=== PATIENT | female | born 1970 | race Caucasian/White ===

== ENCOUNTER 2020-06-30 09:41 | Emergency (ER) | payer OTHER ==
[~2020-06-30] VITALS: Ht 162.6 cm; Wt 108.9 kg
--- NOTE | 2020-06-30 09:55 | Emergency Department Note ---
History of Present Illnes History of Present Illness Chief Complaint: Skin Rash or Abscess History of Present Illness This is a 49 year old female states that she felt a bite near her L ear 5 days prior with worsening pain at the puncture site and L ear pain. Seen by PCP and was give OTIC drops with oral abx, pain and lesion worsened. Seen briefly at and was sent to ED for evaluation. Seen at bedside non-toxic appearing and denies f/c/n/v . Historian: Patient Arrival Mode: Car Onset (how long ago): day(s) (5) Location: Left ear and retro-auricular regoin Quality: aching Severity: moderate Onset quality: gradual Duration (how long): day(s) (5) Timing of current episode: constant Chronicity: new Context: Denies recent illness, Denies recent surgery, Denies recent immobilization, Denies recent travel, Denies trauma/injury, Denies new medications, Denies hx of DVT/PE, Denies non-compliance w/ medications, Denies other Relieving factors: none Exacerbating factors: none Associated symptoms: Reports denies other symptoms Treatments prior to arrival: none Previous service: medications given (bactrim ds , triam cream) Past Medical/Family History Physician Review I have reviewed the patient's past medical and family history. Any updates have been documented here. Past Medical History Recent Fever: No Clinical Suspicion of Infectio: Yes New/Unexplained Change in Ment: No Past Medical History: Diabetes Past Surgical History: None Social History Smoking Cessation: Never Smoker Alcohol Use: None Any Illegal Drug Use: No Review of Systems Review of Systems Constitutional: Denies fever EENTM: Reports ear pain; Denies ear discharge Cardiovascular: Reports no symptoms Respiratory: Reports no symptoms Gastrointestinal: Reports no symptoms Genitourinary: Reports no symptoms Musculoskeletal: Reports no symptoms Integumentary: Reports rash Neurological: Reports no symptoms Psychological: Reports no symptoms Endocrine: Reports no symptoms Hematological/Lymphatic: Reports no symptoms Physical Exam Related Data Allergies: Coded Allergies: ciprofloxacin (Verified Allergy, Unknown, 06/30/20) dulaglutide (Verified Allergy, Unknown, 06/30/20) Physical Exam CONSTITUTIONAL HENT EYES NECK PULMONARY CARDIOVASCULAR GASTROINTESTINAL GENITOURINARY SKIN Skin: Present warm, Present erythema, Present other (pustule noted L masotid region with central puncture . superior mild fluctuance noted superior to area. Enlarged EAC L) MUSCULOSKELETAL NEUROLOGICAL PSYCHOLOGICAL Results Imaging Imaging results reviewed: Yes Impressions [place] [id number] [place] [id number] Patient Name: ROHINI ADAMS MR #: [id number] : 1970 Age/Sex: 49/F Req #: [id number] Adm Physician: Ordered by: JANAK HERRERA DO Report #: [id number] Location: [facility] Room/Bed: Procedure: [id number] HOPD/CT BRAIN WO-HOPD Exam Date: 06/30/20 Exam Time: 1008 REPORT STATUS: Signed CT BRAIN WO-HOPD HISTORY: Left mastoid pain COMPARISON: None. TECHNIQUE: Noncontrast axial scans were obtained from skull base to the vertex. Coronal and sagittal reconstructions obtained from the axial data. One or more of the following dose reduction techniques were used: Automated exposure control, adjustment of the mA and/or kV according to patient size, and/or utilization of iterative reconstruction technique. DISCUSSION: Scalp/Skull: There is mild subcutaneous fat stranding adjacent to the left mastoid tip. No local osseous destruction is seen. Otherwise, unremarkable. Brain sulci: Appropriate for patient's age. Ventricles: Normal in size and configuration. No hydrocephalus. Extra-axial spaces: No masses or fluid collections. Mild carotid siphon calcifications are present. Parenchyma: No abnormal densities. No mass, hemorrhage, or large vascular territory acute infarct. Dural sinuses: No abnormal densities. Sellar/Suprasellar region: Intact. Skull base: Intact. Incidental findings: None. IMPRESSION: 1. No acute intracranial abnormalities. 2. Mild subcutaneous fat stranding adjacent to the left mastoid tip. No local osseous destruction. Signed by: Dr. Aj Mclaughlin M.D. on 06/30/2020 10:17 AM Dictated By: AJ MCLAUGHLIN MD 16 Transcribed By: DAMIAN on 06/30/201016 COPY TO: JANAK HERRERA DO~ Procedures Incision and Drain Type of anesthesia: local Risks and benefits discussed: Yes Verbal consent obtained: Yes Consent given by: patient Imaging studies available/revi: yes Side verified: yes Site verified: yes Site marked: yes Type: abscess Size: 1 cm Site: face Anesthesia method: none Needle aspiration: Yes Incision type: stab incision Incision depth: dermal Scalpel blade: 11 Drainage: bloody Drainage amount: scant Wound treatment: wound left open Assessment & Plan Medical Decision Making MDM Diff Dx : mastoiditis, Otitis media, swimmers ear, localized abscess Assessment & Plan Final Impression: (1) Otitis externa (2) Mastoid pain (3) Insect bite Depart Disposition: HOME, SELF-[facility] Meds Reported Medications Neomycin/Polymyxin B Sulf/Hc (MCHSISXW-[id number]-IT EAR SOLN) 10 Ml Solution 06/30/20 Sulfamethoxazole/Trimethoprim (BACTRIM DS TABLET) 1 Each Tablet, 1 TAB PO BID, #60 TAB 06/30/20 Cyanocobalamin (VITAMIN B-12) 1,000 Mcg Tab, 1000 MCG PO DAILY, #30 TAB 20 Ascorbic Acid (Vitamin C) 125 Mg Tab.chew 06/30/20 Omeprazole (OMEPRAZOLE) 40 Mg Capsule. 06/30/20 Insuln Asp Prt/Insulin Aspart (NOVOLOG MIX 70-30 FLEXPEN SYRN) 100 Unit/1 Ml Insuln.pen, 1 UNIT SC AC, SYR 06/30/20 Metformin Hcl (METFORMIN HCL) 500 Mg Tablet, 500 MG PO BID, #60 TAB 06/30/20 Lisinopril (LISINOPRIL) 10 Mg Tablet, 10 MG PO DAILY, #30 TAB 20 Sitagliptin Phosphate (JANUVIA) 100 Mg Tablet, 100 MG PO DAILY, #30 TAB 20 Fe Fumarate/Fa/Mv, Min Comb#15 (HEMOCYTE PLUS CAPSULE) 1 Each Capsule 06/30/20 Insulin Glargine (LANTUS 3ML PEN) 100 Units/1 Ml Inj 06/30/20 Folic Acid/Cyanocob/Pyridoxine (NEPHRO-JESENIA TABLET) 1 Ea Tab, 1 EACH PO DAILY, #30 TAB 06/30/20 Carvedilol (CARVEDILOL) 12.5 Mg Tablet, 12.5 MG PO BID, #60 TAB 06/30/20 Atorvastatin Calcium (ATORVASTATIN CALCIUM) 20 Mg Tablet, 20 MG PO HS, #30 TAB 06/30/20 Aspirin (ASPIRIN CHEW) 81 Mg Chew, 81 MG PO DAILY, #30 TAB 06/30/20 JANAK HERREAR DO Jun 30, 2020 09:55
--- NOTE | 2020-06-30 09:58 | NUR ---
pt keeps repeating to staff that her is out of town and she must get a hold of him to let him know where she is at today. assured pt that was no problem, and allowed pt to finish call attempts.
[2020-06-30] MEDS ORDERED: LIDOCAINE 1% 5ML-MPF INJ ONE (10:00)
[2020-06-30] MEDS ORDERED: AMOXICILLIN/CLAVULANATE K 500 MG TAB PO ONE (10:00)
[2020-06-30] MEDS ORDERED: CARVEDILOL12.5 MG PO (10:08)
[2020-06-30] MEDS ORDERED: ASPIRIN CHEW81 MG PO (10:08)
[2020-06-30] MEDS ORDERED: ATORVASTATIN CA20 MG PO (10:08)
[2020-06-30] MEDS ORDERED: AMOXICILLIN/CLAVULANATE K 875 MG TAB ONE (10:11)
[2020-06-30] MEDS ORDERED: HYDROCODONE/APAP 5MG-325MG TAB ONE (10:11)
[2020-06-30] MEDS ORDERED: VITAMIN B-121000 MCG PO (10:12)
[2020-06-30] MEDS ORDERED: OMEPRAZOLE40 MG (10:12)
[2020-06-30] MEDS ORDERED: METFORMIN HCL500 MG PO (10:12)
[2020-06-30] MEDS ORDERED: HEMOCYTE PLUS1 EACH (10:12)
[2020-06-30] MEDS ORDERED: LISINOPRIL10 MG PO (10:12)
[2020-06-30] MEDS ORDERED: JANUVIA100 MG PO (10:12)
[2020-06-30] MEDS ORDERED: LANTUS 3ML100 UNITS/ (10:12)
[2020-06-30] MEDS ORDERED: VITAMIN C125 MG (10:12)
[2020-06-30] MEDS ORDERED: NEPHRO-VITE TABL1 EA PO (10:12)
[2020-06-30] MEDS ORDERED: BACTRIM DS TAB1 EACH PO (10:12)
[2020-06-30] MEDS ORDERED: NEOMYCIN-POLYMY10 ML (10:12)
[2020-06-30] MEDS ORDERED: NOVOLOG MI100 UNIT/1 SC (10:12)
[2020-06-30] MEDS ORDERED: HYDROCODONE/APAP 5MG-325MG TAB PO ONE (10:15)
--- NOTE | 2020-06-30 10:20 | Diagnostic Imaging Report ---
CT BRAIN MERGED WITH [facility] HISTORY: Left mastoid pain COMPARISON: None. TECHNIQUE: Noncontrast axial scans were obtained from skull base to the vertex. Coronal and sagittal reconstructions obtained from the axial data. One or more of the following dose reduction techniques were used: Automated exposure control, adjustment of the mA and/or kV according to patient size, and/or utilization of iterative reconstruction technique. DISCUSSION: Scalp/Skull: There is mild subcutaneous fat stranding adjacent to the left mastoid tip. No local osseous destruction is seen. Otherwise, unremarkable. Brain sulci: Appropriate for patient's age. Ventricles: Normal in size and configuration. No hydrocephalus. Extra-axial spaces: No masses or fluid collections. Mild carotid siphon calcifications are present. Parenchyma: No abnormal densities. No mass, hemorrhage, or large vascular territory acute infarct. Dural sinuses: No abnormal densities. Sellar/Suprasellar region: Intact. Skull base: Intact. Incidental findings: None. IMPRESSION: 1. No acute intracranial abnormalities. 2. Mild subcutaneous fat stranding adjacent to the left mastoid tip. No local osseous destruction. Signed by: Dr. Aj Mclaughlin M.D. on 06/30/2020 10:17 AM
== END 2020-06-30 10:33 | disposition home or self-care (01) ==
LOC: FSED 09:50
DX: H60.92 Unspecified otitis externa, left ear (principal); S00.462A Insect bite (nonvenomous) of left ear, initial encounter; E11.9 Type 2 diabetes mellitus without complications
CPT/HCPCS: 10060; 70450; 99283

== ENCOUNTER 2024-03-28 19:21 | Emergency (ER) | payer OTHER ==
[~2024-03-28] VITALS: Ht 160 cm; Wt 99.8 kg
[~2024-03-28 19:21] MED LIST: ASPIRIN CHEW81 MG PO; ATORVASTATIN CA20 MG PO; BACTRIM DS TAB1 EACH PO; CARVEDILOL12.5 MG PO; HEMOCYTE PLUS1 EACH; JANUVIA100 MG PO; LANTUS 3ML100 UNITS/; LISINOPRIL10 MG PO; METFORMIN HCL500 MG PO; NEOMYCIN-POLYMY10 ML; NEPHRO-VITE TABL1 EA PO; NOVOLOG MI100 UNIT/1 SC; OMEPRAZOLE40 MG; VITAMIN B-121000 MCG PO; VITAMIN C125 MG
[2024-03-28 21:23] LABS: BASOPHILS # (AUTO) 0.1 (0.0-0.1); BASOPHILS % 0.5 % (0.0-1.0); EOSINOPHILS # (AUTO) 0.2 (0.0-0.4); EOSINOPHILS % 1.4 % (0.0-6.0); HEMATOCRIT 39.6 % (34.2-44.1); HEMOGLOBIN 12.2 g/dL (12.0-16.0); LYMPHOCYTES # (AUTO) 4.9 (1.0-3.2); LYMPHOCYTES % 37.2 % (18.0-39.1); MEAN CORPUSCULAR HEMOGLOBIN 23.9 pg (28-32); MEAN CORPUSCULAR HGB CONC 30.8 g/dL (31-35); MEAN CORPUSCULAR VOLUME 77.6 fL (81-99); MONOCYTES # (AUTO) 0.9 (0.2-0.8); MONOCYTES % 6.4 % (4.4-11.3); NEUTROPHILS # (AUTO) 7.2 (2.1-6.9); PLATELET COUNT 396 x10e3/uL (140-360); RED CELL DISTRIBUTION WIDTH 17.4 % (11.7-14.4); WHITE BLOOD COUNT 13.27 x10e3/uL (4.8-10.8)
[2024-03-28 21:40] LABS: ANION GAP 13.6 mmol/L (8-16); BILIRUBIN,TOTAL 0.3 mg/dL (0.2-1.2); CREATININE, SERUM 0.8 mg/dL (0.57-1.11); POTASSIUM 4.6 mmol/L (3.5-5.1); TOTAL PROTEIN 7.9 g/dL (6.5-8.1)
[2024-03-28] MEDS ORDERED: IOPAMIDOL 370 MG/ML 100 ML INFUS..BTL INJ ONE (22:09)
[2024-03-28 22:27] LABS: BILIRUBIN,URINE NEGATIVE (NEGATIVE); CLARITY,URINE CLEAR (CLEAR); COLOR,URINE YELLOW (YELLOW); GLUCOSE, URINE NEGATIVE (NEGATIVE); KETONES,URINE NEGATIVE (NEGATIVE); LEUKOCYTE ESTERASE ,URINE NEGATIVE (NEGATIVE); NITRITE,URINE NEGATIVE (NEGATIVE); PH,URINE 6 (5 - 7); PROTEIN,URINE DIPSTICK NEGATIVE (NEGATIVE); URINE UROBILINOGEN 0.2 mg/dL (0.2 - 1)
[2024-03-28] MEDS: ONDANSETRON HCL INJ 2MG/ML 2ML 2 MG/ML VIAL IV STA (23:13)
[2024-03-28] MEDS: KETOROLAC TROMETHAMINE 30 MG/ML VIAL IV STA (23:13)
[2024-03-28 23:49] LABS: BACTERIA,URINE FEW /HPF; EPITHELIAL CELLS,URINE FEW /LPF; WBC,URINE (MAN) 0-5 /HPF (0-5)
[2024-03-29] MEDS ORDERED: AMOX TR-K CLV1 EAC2 PO (01:08)
[2024-03-29] MEDS ORDERED: ONDANSETRON ODT4 MG SL (01:08)
[2024-03-29] MEDS ORDERED: METRONIDAZOLE500 MG PO (01:08)
[2024-03-29 01:20] VITALS: PULSE 77; RESP 18; TEMP 98.7; O2SAT 100
== END 2024-03-29 01:15 | disposition home or self-care (01) ==
LOC: ER 19:39
DX: R10.32 Left lower quadrant pain (principal); K57.92 Diverticulitis of intestine, part unspecified, without perforation or abscess without bleeding; E11.65 Type 2 diabetes mellitus with hyperglycemia; I31.39 Other pericardial effusion (noninflammatory); I10 Essential (primary) hypertension; E78.5 Hyperlipidemia, unspecified; K21.9 Gastro-esophageal reflux disease without esophagitis; E66.9 Obesity, unspecified; K76.0 Fatty (change of) liver, not elsewhere classified
CPT/HCPCS: 36415; 74177; 80053; 81001; 85025; 99284; J1885; J2405; Q9967